=== PATIENT | female | born 1990 | race Caucasian/White ===

== ENCOUNTER 2017-07-19 16:55 | Emergency (ER) | payer OTHER ==
[~2017-07-19] VITALS: Ht 152.4 cm; Wt 63.5 kg
--- NOTE | ~2017-07-19 | CR63 ---
[facility] A Service of [facility] / [facility] RADIOLOGY TEXT RESULTS PATIENT: RUPALI DAY LOCATION: [facility] : [birth year] UNIT #: [id number] AGE: [address]: Melonie Cooley SEX: F ORDER DR: [id number] [facility] [address] [place], [place] [address] [id number] E MR#: [id number] Acc #: [id number] NAME: RUPALI DAY : 1990 SEX: F STUDY DATE/TIME: 07/19/2017 17:31 UNIT: [facility] ROOM: STUDY DESCRIPTION: CR Chest 2 View Attending Physician: Melonie Cooley P.A.-C. Ordering Physician: Melonie Cooley P.A.-C. Primary Care Physician: No Primary Care Physician MEDICAL IMAGING REPORT This report is preliminary unless electronic signature is present EXAM Two-view chest, 07/19/2017. INDICATION 27-year-old female with a cough, shortness of air, and chest pain that started yesterday. Tobacco abuse 10 years. TECHNIQUE Two views of the chest were performed. COMPARISON No comparisons. FINDINGS PA and lateral examination of the chest upright shows a good expansion of the parenchyma with a normal distribution of the pulmonary vascularity. There is no indication of congestion, effusion, infiltrate, tumor, or nodular density. The pleural reflections and diaphragmatic contours are normal. The cardiac silhouette and mediastinal anatomy is within normal limits. IMPRESSION Normal chest. We have no comparisons. Dictated by... Melchor Alejandro M.D. THIS IS AN ELECTRONICALLY VERIFIED REPORT Melchor Alejandro M.D. at 07/19/2017 10:46 PM ITALO/laura [facility] A Service [facility] RADIOLOGY TEXT RESULTS PATIENT: RUPALI DAY LOCATION: [facility] : [birth year] UNIT #: [id number] AGE: [address]: Melonie Cooley SEX: F ORDER DR: TD: 07/19/2017 22:20 JOB #: [id number] MEDICAL IMAGING REPORT Page 1 of 1 COPY
== END 2017-07-19 19:15 | disposition home or self-care (01) ==
LOC: CED 16:55 → CFTX 16:55
DX: J20.9 Acute bronchitis, unspecified (principal); F17.210 Nicotine dependence, cigarettes, uncomplicated
CPT/HCPCS: 71020; 94640; 96372; 99285; J0696